=== PATIENT | male | born 1965 | race Two or more races ===

== ENCOUNTER 2024-06-28 03:25 | Emergency (ER) | payer OTHER ==
[~2024-06-28] VITALS: Ht 182.9 cm; Wt 79.4 kg
[2024-06-28 04:03] LABS: BASOPHILS % (AUTO) 0.6 % (0.0-2.0); EOSINOPHILS # (AUTO) 0.2 K/uL (0.0-0.7); EOSINOPHILS % (AUTO) 3.6 % (0.0-6.0); HEMATOCRIT 42 % (39-51); HEMOGLOBIN 14.5 g/dL (13.5-17.5); LYMPHOCYTES # (AUTO) 3.4 K/uL (0.8-4.8); LYMPHOCYTES % (AUTO) 49.2 % (20.0-44.0); MEAN CORPUSCULAR HEMOGLOBIN 32 PG (26.0-33.0); MEAN CORPUSCULAR HGB CONC 35 g/dl (31.0-36.0); MEAN CORPUSCULAR VOLUME 93 fL (80-96); MONOCYTES # (AUTO) 0.5 K/uL (0.1-1.30); MONOCYTES % (AUTO) 7.1 % (2.0-12.0); NEUTROPHILS # (AUTO) 2.7 K/uL (1.8-8.9); NEUTROPHILS % (AUTO) 39.5 % (43.0-81.0); PLATELET COUNT (AUTO) 156 K/uL (150-450); RED BLOOD CELL COUNT(AUTO) 4.52 MIL/uL (4.5-6.0); WHITE BLOOD COUNT (AUTO) 6.8 K/uL (4.3-11.0)
[2024-06-28 04:17] LABS: CALCIUM, SERUM 9.1 mg/dL (8.5-10.1); CARBON DIOXIDE 23 mmol/L (21-32); CHLORIDE 105 mmol/L (98-107); CREATININE 1.2 mg/dL (0.6-1.3); D-DIMER 0.3 mg/L(FEU (0.17-0.50); GLUCOSE 146 mg/dL (74-106); INR 0.98 (0.91-1.10); PARTIAL THROMBOPLASTIN TIME 25.2 SEC (24.3-34.3); POTASSIUM 4.2 mmol/L (3.5-5.1); PROTHROMBIN TIME 10.4 SECS (9.2-11.1); SODIUM SERUM 138 mmol/L (136-145); UREA NITROGEN, BLOOD 25 mg/dL (7-18)
[2024-06-28 04:23] LABS: ALANINE AMINOTRANSFERASE 51 U/L (12-78); ALBUMIN 3.6 g/dL (3.4-5.0); ALKALINE PHOSPHATASE 48 U/L (46-116); ASPARTATE AMINOTRANSFERASE 19 U/L (15-37); BILIRUBIN,DIRECT 0.1 mg/dL (0.0-0.2); BILIRUBIN,TOTAL 0.3 mg/dL (0.2-1.0); NT-PRO BNP 28 pg/mL (0-125); TOTAL PROTEIN, SERUM 6.3 g/dL (6.4-8.2)
[2024-06-28] MEDS ORDERED: ONDANSETRON HCL/PF 4 MG/2 ML VIAL ONE (04:29)
[2024-06-28] MEDS: ONDANSETRON HCL/PF 4 MG/2 ML VIAL IV ONE (04:34)
[2024-06-28] MEDS ORDERED: MECLIZINE HCL 12.5 MG TABLET ONE (05:01)
[2024-06-28] MEDS: MECLIZINE HCL 12.5 MG TABLET PO ONE (05:10)
[2024-06-28] MEDS ORDERED: MECL-159 PO (08:22)
[2024-06-28 08:52] VITALS: BP 125/90; TEMP 98; O2SAT 98
== END 2024-06-28 08:52 | disposition home or self-care (01) ==
LOC: ER 03:28
DX: R06.02 Shortness of breath (principal); R42 Dizziness and giddiness; I10 Essential (primary) hypertension; I25.2 Old myocardial infarction; Z88.0 Allergy status to penicillin
CPT/HCPCS: 99285; 96374; 70450; 71045; 93005; 85025; 80048; 80076; 85378; 36415; 84484 ×2; 85730; 83880; J8597; J2405